=== PATIENT | male | born 1970 | race Caucasian/White ===

== ENCOUNTER 2019-02-23 18:55 | Emergency (ER) | payer OTHER ==
[2019-02-23] MEDS ORDERED: HYDROmorphone 1 MG/ML Syringe IVPUSH ONE (19:26)
--- NOTE | 2019-02-23 19:37 | EDM.PDOC ---
<Karen Hernandez Gely - Last Filed: 02/23/19 20:32> ED HPI GENERAL MEDICAL PROBLEM - General Chief Complaint: Upper Extremity Injury/Pain Stated Complaint: [facility] Time Seen by Provider: 02/23/19 19:20 Source of Information: Reports: Patient, RN Notes Reviewed History Limitations: Reports: No Limitations - History of Present Illness INITIAL COMMENTS - FREE TEXT/NARRATIVE: Patient is a 48-year-old male who presents to the ED via [facility] for dislocated right shoulder. 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 Patient notes that he dislocated this prior, on , with a slip on the ice in a parking lot. He was seen at a ER in [place], and he had sedation and they put it back into place then. He is to follow-up with orthopedics, but has not had his appointment yet. He states that he has an appointment with [facility] in [place] on Sunday. Patient did have 1 mg Dilaudid and 4 mg Zofran in route to the hospital via ambulance service. Right Shoulder Pain Score (Numeric/FACES): 10 - Related Data Allergies Allergy/AdvReac Type Severity Reaction Status Date / Time No Known Allergies Allergy Verified 02/23/19 19:03 Home Meds: Home Meds . [No Known Home Meds] 02/23/19 [History] Past Medical History Musculoskeletal History: Reports: Other (See Below) Other Musculoskeletal History: right dislocated shoulder Social & Family History - Tobacco Use Smoking Status *Q: Never Smoker - Caffeine Use Caffeine Use: Reports: Soda - Recreational Drug Use Recreational Drug Use: No Review of Systems - Review of Systems Review Of Systems: Comprehensive ROS is negative, except as noted in HPI. Musculoskeletal: Reports: Shoulder Pain (R shoulder) Neurological: Denies: Numbness, Tingling ED EXAM, GENERAL - Physical Exam Exam: See Below Exam Limited By: No Limitations General Appearance: Alert, WD/WN, No Apparent Distress Respiratory/Chest: No Respiratory Distress, Lungs Clear, Normal Breath Sounds, No Accessory Muscle Use, Chest Non-Tender Cardiovascular: Normal Peripheral Pulses, Regular Rate, Rhythm, No Murmur Peripheral Pulses: 3+: Radial (L), Radial (R) Extremities: Non-Tender, Normal Capillary Refill, Limited Range of Motion (of R shoulder), Other (pt is able to move hand and wiggle fingers WNL.) Neurological: Alert, Oriented, Normal Cognition, No Motor/Sensory Deficits Psychiatric: Normal Affect, Normal Mood Skin Exam: Warm, Dry, Intact, Normal Color, No Rash Course - Vital Signs Last Recorded V/S: Last Vital Signs Temp 36.4 C 02/23/19 18:59 Pulse 59 L 02/23/19 18:59 Resp 20 02/23/19 18:59 BP 178/87 H 02/23/19 18:59 Pulse Ox 100 02/23/19 18:59 - Orders/Labs/Meds Meds: Medications Discontinued Medications Generic Name Dose Route Start Last Admin Trade Name Abigail PRN Reason Stop Dose Admin Fentanyl 100 mcg 02/23/19 19:33 02/23/19 19:48 Sublimaze IVPUSH 02/23/19 19:34 50 mcg ONETIME ONE Administration Hydromorphone HCl 1 mg 02/23/19 19:26 Dilaudid IVPUSH 02/23/19 19:27 ONETIME ONE Midazolam HCl 5 mg 02/23/19 19:33 02/23/19 20:54 Versed 1 Mg/Ml IVPUSH 02/23/19 19:34 2 mg ONETIME ONE Administration Midazolam HCl Confirm 02/23/19 19:41 02/23/19 20:28 Versed 1 Mg/Ml Administered 02/23/19 19:42 Not Given Dose 6 mg .ROUTE .STK-MED ONE Midazolam HCl Confirm 02/23/19 19:52 02/23/19 20:28 Versed 1 Mg/Ml Administered 02/23/19 19:53 Not Given Dose 4 mg .ROUTE .STK-MED ONE Midazolam HCl 2 mg 02/23/19 19:55 02/23/19 19:53 Versed 1 Mg/Ml IVPUSH 02/23/19 19:56 1 mg ONETIME ONE Administration - Re-Assessments/Exams Free Text/Narrative Re-Assessment/Exam: 02/23/19 19:36 Patient presents to the ED for the evaluation of a dislocated right shoulder. I will have Dr. Self help assist me, he is suggested using 100 mcg fentanyl and 5 mg Versed for sedation purposes, x-ray does demonstrate the shoulder out of joint. But it is visible on physical exam as well. 02/23/19 20:04 During the reduction, the gentleman did need another 2 mg of Versed, he got 7 mg total. We were able to reduce the joint back into place without much difficulty at this time. Dr. Self did help with the reduction. Post reduction films have been ordered. 02/23/19 20:21 Shoulder x-ray post reduction does appear to be in joint. X-rays were reviewed by myself and Dr. Self. Patient is neurovascularly intact on re-exam. Will be sent home with a sling. Departure - Departure Time of Disposition: 20:05 Disposition: Home, Self-Care 01 Condition: Fair Clinical Impression: Recurrent dislocation, right shoulder - Discharge Information *PRESCRIPTION DRUG MONITORING PROGRAM REVIEWED*: No *COPY OF PRESCRIPTION DRUG MONITORING REPORT IN PATIENT VIDAL: No Instructions: Shoulder Dislocation Referrals: PCP,None [Primary Care Provider] - Forms: ED Department Discharge Additional Instructions: You have been evaluated in the ED for your Right shoulder dislocation. Your x-ray demonstrated that right shoulder had an anterior dislocation. You had conscious sedation given to you in the ER, and this was reduced without much difficulty or without any complications. Your post x-ray demonstrated your shoulder is back in joint. You were given a sling to keep your arm in, please try to keep this in place as much as possible to help guard against recurrent dislocation of the joint. Keep your appointment with [facility] in [place] on Sunday for further management. Please use ice as tolerated to the affected area. Please try to elevate the affected area to relieve swelling. You may take Tylenol 500 mg or ibuprofen 600mg q6 hrs for pain relief. Please do so until you have a tolerable level of pain with activity. Do not exceed 4000mg Tylenol or 3200mg ibuprofen in a 24 hour time period. Please return to ED if your symptoms should change or worsen. <Graeme Self - Last Filed: 02/26/19 21:56> ED TRAUMA EXTREMITY PROCEDURES - Joint Reduction Site: Shoulder (R) Sedation: Conscious Sedation Pre-Procedure NV Status: Normal Post-Procedure NV Status: Normal Technique: Traction/Counter Traction Number of Attempts: 1 Post-Reduction Imaging: Completely Reduced, No Fracture Seen Joint Reduction Complications: No ED PROCEDURAL SEDATION - Pre Procedure Indications: shoulder dislocation Preparations: procedure explained, consent signed, oxygen, continuous pulse oximeter, suction, continuous roving carrier, constant attendance - Physical Exam Airway: normal anatomy Cardiovascular: normal heart sounds Respiratory: normal breath sounds Neurological: alert, responsive, moderate distress Meilampati Classification: 1 (soft palate, anterior/posterior tonsillar pillars , uvula visible) - Procedure Sedation Sedation: versed (parenteral) (7 mg), fentanyl (100 g) ASA Classification: 1 (Normal healthy patient) - Intra Procedure Condition during procedure: lightly sedated, oxygenation stable, maintained airway well, handled secretions adequately Complications: none Reversal: none - Post Procedure Condition after procedure: alert, NAD, responds to verbal stimuli - Discharge Condition Patient returned to pre-procedure baseline: Yes Alert prior to discharge: Yes Ambulatory with assistance: Yes Vital signs normal: Yes Time spent with sedated patient: 10 min Course - Re-Assessments/Exams Free Text/Narrative Re-Assessment/Exam: 02/23/19 19:42 reviewed the x-rays with the physician assistant laboratory director and agree with an anterior dislocation of the right shoulder. There appears to be no fractures of the glenoid or the humerus at this time. Discussed the need for reduction of the shoulder with the patient and he has consented to have this done under conscious sedation. His last meal was approximately 5 hours ago with some cookies. 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 Just moved the wrong way today and it slipped out of position. Plan will be to give fentanyl 50-100 g IV and up to 6 mg of Versed as needed for conscious sedation to allow reduction. 02/23/19 20:18 was reduction films reveal that the humerus has been returned to anatomical position particularly on the Y view. The PA will check that his axillary nerve ulnar nerve and radial nerve are intact Sepsis Event Note - Focused Exam Date Exam was Performed: 02/26/19 Time Exam was Performed: 21:55
[2019-02-23] MEDS ORDERED: Midazolam 1 MG/ML 2 ML SDV ONE ×2 (19:41→19:52)
[2019-02-23] MEDS: Midazolam 1 MG/ML 5 ML SDV IVPUSH ONE ×3 (19:44→20:54)
[2019-02-23] MEDS: fentaNYL 100 MCG/2 ML SDV IVPUSH ONE ×2 (19:44→19:48)
[2019-02-23] MEDS ORDERED: Midazolam 1 MG/ML 2 ML SDV IVPUSH ONE (19:55)
--- NOTE | 2019-02-24 10:36 | CR ---
Right shoulder: Three views of the right shoulder were obtained. Comparison: No prior right shoulder study. Anterior subcoracoid dislocation is seen. No fracture, dislocation or other bony abnormality is identified. Impression: 1. Right shoulder dislocation as noted above. Diagnostic code #3 This report was dictated in [place] Standard Time
--- NOTE | 2019-02-24 10:36 | CR ---
Right shoulder: Two views of the right shoulder were obtained. Comparison: Prior right shoulder study performed earlier on same day (7:29 PM). Previous dislocation has been reduced. Glenohumeral alignment appears within normal limits. No discrete fracture or other abnormality is seen. Impression: 1. Relocation of previous glenohumeral dislocation. Diagnostic code #1 This report was dictated in [place] [employer] Time
== END 2019-02-23 21:10 | disposition home or self-care (01) ==
LOC: EDBD 18:55 → JD.ED 18:55
DX: M24.411 Recurrent dislocation, right shoulder (principal)
CPT/HCPCS: 23650; 73030; 99152; 99283; J2250; J3010